=== PATIENT | male | born 1985 | race Caucasian/White ===

== ENCOUNTER 2017-02-18 14:28 | Emergency (ER) | payer OTHER ==
[~2017-02-18] VITALS: Ht 188 cm; Wt 106.0 kg
[~2017-02-18 14:28] MED LIST: AUGMENTIN875 MG PO; CATAPRES0.1 M1 PO; CITALOPRAM HBR40 M1 PO; CLARITIN10 M6 PO; COMPAZINE10 MG PO; CYCLOBENZAPRINE10 M1 PO; DESIPRAMINE HCL PO; FLONASE ALLERG9.9 ML; IMITREX6 MG/0.52 SC; NEURONTIN300 M1 PO; SEROQUEL200 M2 PO; TOPAMAX100 M2 PO; TOPAMAX200 MG PO; ZANAFLEX4 M2 PO
[2017-02-18] MEDS ORDERED: ATIVAN1 M2 PO (14:49)
[2017-02-18] MEDS ORDERED: BACTRIM DS TAB1 EAC2 PO (14:52)
== END 2017-02-18 16:34 ==
LOC: EDMED 14:28
DX: Z48.89 Encounter for other specified surgical aftercare (principal)